=== PATIENT | female | born 1975 | race Caucasian/White ===

== ENCOUNTER 2016-12-04 11:49 | Emergency (ER) | payer OTHER ==
[2016-12-04 12:02] VITALS: BP 126/98
--- NOTE | 2016-12-04 12:29 | UC ---
Knee Pain HPI - HPI Summary HPI Summary: RIGHT KNEE X 4 MONTHS WAS GETTING BETTER BUT STARTED TO GET VERY PAINFUL 2 DAYS AGO + PAIN AND SWELLING, NO KNOWN INJURY - History of Current Complaint Chief Complaint: UCLowerExtremity Stated Complaint: RIGHT KNEE PAIN Time Seen by Provider: 12/04/16 11:55 Hx Obtained From: Patient Hx Last Menstrual Period: 11/25/16 Onset/Duration: Gradual Onset, Lasting Days - 2, Still Present Severity Initially: Moderate Severity Currently: Moderate Character: Aching, Throbbing Aggravating Factor(s): Movement, Weight Bearing, Prolonged Standing, Stairs Alleviating Factor(s): Nothing Associated Signs And Symptoms: Positive: Swelling, Weakness. Negative: Redness , Bruising, Fever, Numbness, Tingling Able to Bear Weight: Yes - Allergies/Home Medications Allergies/Adverse Reactions: Allergies Allergy/AdvReac Type Severity Reaction Status Date / Time Aspirin Allergy Rash Verified 12/04/16 11:53 Penicillins Allergy Rash Verified 12/04/16 11:53 Home Medications: Home Medications Ibuprofen TAB* [Advil TAB*] 400 mg PO Q6H PRN 12/04/16 [History Confirmed ] PMH/Surg Hx/FS Hx/Imm Hx Endocrine History Of: Denies: Thyroid Disease Cardiovascular History Of: Reports: Hypertension Respiratory History Of: Denies: Asthma GI/ History Of: Denies: Gastrointestinal Bleed Psychological History Of: Denies: Anxiety - Surgical History Surgical History: Yes Surgery Procedure, Year, and Place: 3 C-SECTIONS. dental extractions - Family History Known Family History: Positive: Hypertension - Social History Alcohol Use: None Substance Use Type: None Smoking Status (MU): Former Smoker When Did the Patient Quit Smoking/Using Tobacco: 05/2015 Review of Systems Constitutional: Negative Skin: Negative Eyes: Negative ENT: Negative Respiratory: Negative Musculoskeletal: Other: - RIGHT KNEE PAIN All Other Systems Reviewed And Are Negative: Yes Physical Exam Triage Information Reviewed: Yes Appearance: Well-Appearing, No Pain Distress, Obese Vital Signs: Initial Vital Signs Temp 98.8 F 12/04/16 11:55 Pulse 82 12/04/16 11:55 Resp 18 12/04/16 11:55 BP 126/98 12/04/16 11:55 Pulse Ox 97 12/04/16 11:55 Vital Signs Reviewed: Yes Eyes: Positive: Conjunctiva Clear ENT: Positive: Normal ENT inspection, Hearing grossly normal, Pharynx normal Neck: Positive: Supple, Nontender, No Lymphadenopathy Respiratory: Positive: Chest non-tender, Lungs clear, Normal breath sounds, No respiratory distress Cardiovascular: Positive: RRR, No Murmur, Pulses Normal Musculoskeletal: Positive: Other: - RIGHT KNEE: MILD SWELLING, + DIFFUSE TENDERNESS, DECREASE ROM ON FLECTION AND EXTENSION Neurological Exam: Normal Knee Pain Course/Dx - Differential Dx/Diagnosis Provider Diagnoses: RIGHT KNEE PAIN Discharge - Discharge Plan Condition: Stable Disposition: HOME Patient Education Materials: Knee Pain (ED) Referrals: No Primary Care Phys,NOPCP [Primary Care Provider] - Nilesh Muñoz MD [Medical Doctor] - 5 Days
--- NOTE | 2016-12-04 12:37 | RAD ---
HISTORY: Right knee pain and swelling COMPARISONS: None VIEWS: Lower, Frontal, lateral, axial, and oblique views of the right knee FINDINGS: BONE DENSITY: Normal. BONES: There is no displaced fracture. JOINTS: There is no arthropathy. ALIGNMENT: There is no dislocation. SOFT TISSUES: Unremarkable. OTHER FINDINGS: None. IMPRESSION: NO ACUTE OSSEOUS INJURY. IF SYMPTOMS PERSIST, RECOMMEND REPEAT IMAGING.
== END 2016-12-04 12:57 | disposition home or self-care (01) ==
LOC: UCCORT 11:49
DX: M25.561 Pain in right knee (principal); Z88.6 Allergy status to analgesic agent; Z88.0 Allergy status to penicillin; I10 Essential (primary) hypertension; E66.9 Obesity, unspecified; Z87.891 Personal history of nicotine dependence
CPT/HCPCS: 99211; G0463

== ENCOUNTER 2018-06-12 19:42 | Emergency (ER) | payer OTHER ==
[2018-06-12 20:20] VITALS: BP 128/82
[2018-06-12] MEDS ORDERED: Azithromycin TAB* 250 MG PO ONE (20:55)
--- NOTE | 2018-06-12 20:58 | ED ---
Upper Extremity Pain - HPI Summary HPI Summary: pt presents for evaluation of pain to her left wrist. she states that it is slightly red. she denies any bug bite, trauma, fever/chills. she denies drinking alcohol or hx of gout. - History of Current Complaint Chief Complaint: UCSkin Stated Complaint: LEFT WRIST PAIN Hx Obtained From: Patient Hx Last Menstrual Period: "Towards the beginning of May" Mechanism Of Injury: Other - no trauma Timing: Constant Severity Initially: Mild Severity Currently: Mild Pain Location: Wrist - left Character: Throbbing Aggravating Factor(s): Movement Alleviating Factor(s): Nothing Associated Signs & Symptoms: Positive: Swelling, Redness - Allergies/Home Medications Allergies/Adverse Reactions: Allergies Allergy/AdvReac Type Severity Reaction Status Date / Time aspirin Allergy Rash Verified 06/12/18 20:14 Penicillins Allergy Rash Verified 06/12/18 20:14 Home Medications: Home Medications Escitalopram (NF) [Lexapro 10 mg (NF)] 10 mg PO DAILY 06/12/18 [History Confirmed 06/12/18] Hydrochlorothiazide TAB* [Hydrodiuril TAB*] 12.5 mg PO DAILY 06/12/18 [History Confirmed 06/12/18] Lisinopril TAB* [Prinivil TAB*] 25 mg PO DAILY 06/12/18 [History Confirmed 06/12] LoraTADine TAB(NF) [Claritin 10 MG TAB(NF)] 10 mg PO DAILY 06/12/18 [History Confirmed 06/12/18] glipiZIDE TAB* [Glucotrol TAB*] 10 mg PO DAILY 06/12/18 [History Confirmed 06/12] PMH/Surg Hx/FS Hx/Imm Hx Previously Healthy: Yes Endocrine/Hematology History: Reports: Hx Diabetes Denies: Hx Thyroid Disease Cardiovascular History: Reports: Hx Hypertension Denies: Hx Pacemaker/ICD Respiratory History: Denies: Hx Asthma GI History: Denies: Hx Gastrointestinal Bleed History: Denies: Hx Renal Disease Sensory History: Denies: Hx Hearing Aid Psychiatric History: Reports: Hx Panic Disorder Denies: Hx Anxiety - Surgical History Surgery Procedure, Year, and Place: TUBAL LIGATION. 3 C-SECTIONS. dental extractions Infectious Disease History: No Infectious Disease History: Denies: Traveled Outside the [place] in Last 30 Days - Family History Known Family History: Positive: Hypertension - Social History Alcohol Use: None Substance Use Type: Reports: None Smoking Status (MU): Former Smoker Length of Time of Smoking/Using Tobacco: 1-2 PPD x 18 Years Review of Systems Constitutional: Negative Negative: Fever, Chills, Fatigue, Skin Diaphoresis Negative: Photophobia, Blurred Vision, Diplopia, Drainage, Erythema Negative: Dental Pain, Sore Throat, Ear Ache Negative: Palpitations, Chest Pain Negative: Shortness Of Breath, Cough Negative: Abdominal Pain, Vomiting, Diarrhea, Nausea Negative: burning, frequency, flank pain Positive: Arthralgia - left wrist, Decreased ROM - minimal left wrist Positive: Rash. Negative: Bruising Negative: Headache, Weakness, Paresthesia, Numbness Negative: Anxious, Depressed All Other Systems Reviewed And Are Negative: No Physical Exam Triage Information Reviewed: Yes Vital Signs On Initial Exam: Initial Vitals Temp Pulse Resp BP Pulse Ox 97.9 F 76 18 128/82 99 06/12/18 20:11 06/12/18 20:11 06/12/18 20:11 06/12/18 20:11 06/12/18 20:11 Vital Signs Reviewed: Yes Appearance: Positive: Well-Appearing, No Pain Distress, Well-Nourished Skin: Positive: Warm, Dry, Other - rash mild left medial dorsal wrist Eyes: Positive: Normal, EOMI, NISREEN ENT: Positive: Hearing grossly normal, Pharynx normal Neck: Positive: Supple, Nontender Respiratory/Lung Sounds: Positive: Clear to Auscultation, Breath Sounds Present Cardiovascular: Positive: Normal, RRR Abdomen Description: Positive: Nontender, Soft Bowel Sounds: Positive: Present Neurological: Positive: Normal, Sensory/Motor Intact, Alert, Oriented to Person Place, Time, CN Intact II-III, Other - full rom left wrist, no deformities Psychiatric: Positive: Normal AVPU Assessment: Alert Diagnostics - Vital Signs Vital Signs Temp Pulse Resp BP Pulse Ox 06/12/18 20:11 97.9 F 76 18 128/82 99 - Laboratory Lab Statement: Any lab studies that have been ordered have been reviewed, and results considered in the medical decision making process. Course/Dx - Course Course Of Treatment: xray of left wrist shows no evidence of fracture or gas in the tissues. pt has nl rom. there is a very mild cellulitis. no evidence of infected joint. pt encouraged to f/u with pcp by saturday or to return if worse or any new symptoms. - Diagnoses Provider Diagnoses: Cellulitis Discharge - Sign-Out/Discharge Documenting (check all that apply): Patient Departure All imaging exams completed and their final reports reviewed: Yes - Discharge Plan Condition: Stable Disposition: HOME Prescriptions: Azithromycin TAB* [Zithromax TAB (Z-ANDRES) 250 mg #6 tabs] 2 tab PO .TODAY, THEN 1 DAILY #1 andres Patient Education Materials: Cellulitis (ED) Referrals: Laura Greenberg MD [Primary Care Provider] - Additional Instructions: take the zpak as instructed. take tylenol for pain. return if worse or any new symptoms. It is important to follow up with your primary care physician. - Billing Disposition and Condition Condition: STABLE Disposition: Home
--- NOTE | 2018-06-13 07:59 | RAD ---
Indication: Left wrist injury. 3 views of the wrist demonstrates no fracture. No other bone or joint abnormality is identified. IMPRESSION: NO FRACTURE OF THE WRIST IS NOTED. R1NF
== END 2018-06-12 21:02 | disposition home or self-care (01) ==
LOC: UCCORT 19:42
DX: L03.114 Cellulitis of left upper limb (principal); Z87.891 Personal history of nicotine dependence
CPT/HCPCS: 99212; A9270-GY; G0463

== ENCOUNTER 2018-09-27 20:30 | Emergency (ER) | payer OTHER ==
[2018-09-27] MEDS ORDERED: Albuterol/Ipratropium NEB.SOL* Albuterol 2.5 MG/Ipratropium 0.5 MG 3 ML INH ONE (20:59)
[2018-09-27] MEDS ORDERED: Nitroglycerin TAB 0.4 MG* 0.4 MG TAB SL ONE (20:59)
--- NOTE | 2018-09-27 21:06 | UC ---
Shortness of Breath HPI - HPI Summary HPI Summary: C/O cough with SOB today. Started this morning and is getting worse. Chest pain with coughing. Has allergies and PND. Does describe some exertional chest pain. - History of Current Complaint Stated Complaint: HURTS TO BREATHE IN Hx Obtained From: Patient Hx Last Menstrual Period: 09/25/18 ?: No Onset/Duration: Sudden Onset, Lasting Hours - 12, Worse Since - onset Current Severity: Moderate Dyspnea At: Exertion Alleviating Factors: Nothing Associated Signs & Symptoms: Positive: Cough (Nonproductive), Wheezing, Chest Pain w/Cough, Nasal Congestion Related History: Obesity - Allergy/Home Medications Allergies/Adverse Reactions: Allergies Allergy/AdvReac Type Severity Reaction Status Date / Time aspirin Allergy Rash Verified 09/27/18 20:44 Penicillins Allergy Rash Verified 09/27/18 20:44 PMH/Surg Hx/FS Hx/Imm Hx Endocrine History: Diabetes Cardiovascular History: Hypertension - Surgical History Surgical History: Yes Surgery Procedure, Year, and Place: TUBAL LIGATION. 3 C-SECTIONS. dental extractions - Family History Known Family History: Positive: Hypertension, Diabetes - Social History Occupation: Employed Full-time Lives: With Family Alcohol Use: Occasionally Substance Use Type: None Smoking Status (MU): Former Smoker Length of Time of Smoking/Using Tobacco: 1-2 PPD x 18 Years When Did the Patient Quit Smoking/Using Tobacco: 2014 Review of Systems All Other Systems Reviewed And Are Negative: Yes Constitutional: Positive: Fatigue ENT: Positive: Nasal Discharge Respiratory: Positive: Shortness Of Breath, Cough Cardiovascular: Positive: Chest Pain - just with coughing today. Is Patient Immunocompromised?: No Physical Exam Triage Information Reviewed: Yes Appearance: No Pain Distress, Ill-Appearing, Obese Vital Signs: Initial Vital Signs Temp 99 F 09/27/18 20:41 Pulse 93 09/27/18 20:41 Resp 24 09/27/18 20:41 BP 135/77 09/27/18 20:41 Pulse Ox 100 09/27/18 20:41 Vital Signs Reviewed: Yes Eyes: Positive: Conjunctiva Inflamed ENT: Positive: Pharynx normal, Nasal congestion, TMs normal Neck: Positive: Supple, Nontender, Other: - ? carotid bruit left > right Respiratory: Positive: Wheezing - expiratory wheezes with coughing.. Negative: Chest non-tender - TENDER ANTERIOR CHEST WALL LATERAL TO THE STERNUM. Cardiovascular: Positive: RRR, No Murmur Musculoskeletal Exam: Normal Neurological Exam: Normal Psychological Exam: Normal Skin Exam: Normal Skin: Negative: Rashes Diagnostics - EKG Cardiac Rate: NL Cardiac Rhythm: Sinus: Normal Ectopy: None ST Segment: Non-Specific - inferolateral ST/T changes Summary of EKG Findings: Possible inferolateral ischemia. Re-Evaluation - Re-Evaluation First Eval Re-Evaluation Time: 21:28 - EKG, no change. Change: Improved - breathing feels better Shortness of Breath Dx - Differential Dx/Diagnosis Differential Diagnosis/HQI/PQRI: Asthma, CHF, Chest Wall Pain, COPD Exacerbation Provider Diagnosis: Upper respiratory infection, Bronchospasm, acute, Acute chest wall pain, Abnormal EKG, Carotid artery bruit Discharge - Sign-Out/Discharge Documenting (check all that apply): Patient Departure All imaging exams completed and their final reports reviewed: No Studies - Discharge Plan Condition: Stable Disposition: HOME Prescriptions: predniSONE TAB* [Deltasone 20 MG TAB*] 60 mg PO DAILY #18 tab Patient Education Materials: Bronchospasm (ED), Prednisone (By mouth) Referrals: Janes Ryan [Primary Care Provider] - 2 Days (Follow up on breathing, chest pain, abnormal EKG and carotid bruit.) Additional Instructions: IF YOU GET WORSENING PRESSURE TYPE CHEST PAIN WITH OR WITHOUT EXERTION CALL 911 AND GO TO [facility] ER. SHARP PAIN THAT IS WORSE WITH COUGHING OR DEEP BREATHING IS OK TO WATCH. - Billing Disposition and Condition Condition: STABLE Disposition: Home
[2018-09-27 21:13] VITALS: BP 148/66
[2018-09-27] MEDS ORDERED: Albuterol HFA INHALER* 8 gm MDI INH ONE (21:27)
[2018-09-27] MEDS ORDERED: predniSONE TAB* 20 MG PO ONE (21:27)
== END 2018-09-27 21:47 | disposition home or self-care (01) ==
LOC: UCCORT 20:30
DX: J06.9 Acute upper respiratory infection, unspecified (principal); J98.01 Acute bronchospasm; R07.89 Other chest pain; R94.31 Abnormal electrocardiogram [ECG] [EKG]; R09.89 Other specified symptoms and signs involving the circulatory and respiratory systems; E11.9 Type 2 diabetes mellitus without complications; I10 Essential (primary) hypertension; Z88.8 Allergy status to other drugs, medicaments and biological substances; Z88.0 Allergy status to penicillin; Z87.891 Personal history of nicotine dependence
CPT/HCPCS: 93005; 99213; A9270-GY; G0463; J7512

== ENCOUNTER 2019-03-02 12:39 | Emergency (ER) | payer OTHER ==
--- NOTE | 2019-03-02 12:53 | UC ---
Skin Complaint HPI - HPI Summary HPI Summary: 43-year-old female with numerous herpes labialis sores on both lips since yesterday morning. She has a history of cold sores however has never had an outbreak this badly. She also states she's had some nasal congestion and cold symptoms. - History of Current Complaint Time Seen by Provider: 03/02/19 12:47 Stated Complaint: LIP CONCERN Hx Obtained From: Patient Hx Last Menstrual Period: 09/25/18 ?: No Onset/Duration: Gradual Onset Timing: Constant Onset Severity: Mild Current Severity: Moderate Location: Other - Both lips. Character: Swelling, Pruritus, Pain, Redness, Raised Aggravating Factor(s): Touch Alleviating Factor(s): Nothing Associated Signs & Symptoms: Positive: Negative - Patient states she's had a little bit of nasal congestion since yesterday. - Allergy/Home Medications Allergies/Adverse Reactions: Allergies Allergy/AdvReac Type Severity Reaction Status Date / Time aspirin Allergy Rash Verified 09/27/18 20:44 Home Medications: Home Medications Alogliptin Benzoate [Alogliptin] 25 mg PO DAILY 03/02/19 [History Confirmed ] PMH/Surg Hx/FS Hx/Imm Hx Previously Healthy: Yes Endocrine History: Diabetes Cardiovascular History: Hypertension - Surgical History Surgical History: Yes Surgery Procedure, Year, and Place: TUBAL LIGATION. 3 C-SECTIONS. dental extractions - Family History Known Family History: Positive: Hypertension, Diabetes - Social History Alcohol Use: Occasionally Substance Use Type: None Smoking Status (MU): Former Smoker Length of Time of Smoking/Using Tobacco: 1-2 PPD x 18 Years When Did the Patient Quit Smoking/Using Tobacco: 2014 Review of Systems All Other Systems Reviewed And Are Negative: Yes Skin: Positive: Rash - Herpes labialis both lips onset yesterday morning. ENT: Positive: Nasal Discharge - Nasal congestion since yesterday. Is Patient Immunocompromised?: No Physical Exam Triage Information Reviewed: Yes Appearance: Well-Appearing, No Pain Distress, Well-Nourished Vital Signs Reviewed: Yes Eyes: Positive: Conjunctiva Clear Neck: Positive: Supple, Nontender, No Lymphadenopathy Respiratory: Positive: Lungs clear, Normal breath sounds, No respiratory distress, No accessory muscle use Cardiovascular: Positive: RRR, No Murmur, Pulses Normal, Brisk Capillary Refill Skin: Positive: Rashes - Numerous herpes labialis cold sores on both lips. Course/Dx - Course Course Of Treatment: I advised the patient talk with her primary care provider about herpes suppression or having a prescription at home for the next time she starts an outbreak of herpes. This is quite a significant one for her. I'm going to start her on valacyclovir 2 g twice a day one day and we discussed Zovirax ointment however her insurance may not cover that and I advised her of that. No sharing of eating or drinking utensils, no skin to skin contact as long she has the outbreak. - Diagnoses Provider Diagnosis: Recurrent herpes labialis Discharge - Sign-Out/Discharge Documenting (check all that apply): Patient Departure All imaging exams completed and their final reports reviewed: No Studies - Discharge Plan Condition: Fair Disposition: HOME Prescriptions: Acyclovir OINT 5%(NF) [Zovirax Oint 5%(NF)] 1 applic TOPICAL .SIX TIMES A DAY # 1 tube ValACYclovir (*) [Valtrex 1 GM(*)] 2 gm PO BID 1 Days #4 tab Patient Education Materials: Oral Herpes Simplex Virus Infections (ED) Referrals: Keara Murphy NP [Primary Care Provider] - Additional Instructions: Do not share eating or drinking utensils, do not have any skin to skin contact while you're having the outbreak. Definite follow-up with your primary care provider if no improvement in 3 or 4 days. With your primary care provider about getting a prescription for cold sore outbreak suppression or for early treatment when you feel yourself getting a cold sore. - Billing Disposition and Condition Condition: FAIR Disposition: Home
[2019-03-02 12:55] VITALS: BP 144/95
== END 2019-03-02 13:21 | disposition home or self-care (01) ==
LOC: UCCORT 12:39
DX: B00.1 Herpesviral vesicular dermatitis (principal); E11.9 Type 2 diabetes mellitus without complications; I10 Essential (primary) hypertension; Z87.891 Personal history of nicotine dependence; Z79.84 Long term (current) use of oral hypoglycemic drugs
CPT/HCPCS: 99212; G0463